=== PATIENT | male | born 1955 | race Caucasian/White ===

== ENCOUNTER 2017-02-18 03:04 | Inpatient (IN) | payer MEDICARE ==
[2017-02-18] MEDS: LORAZEPAM 2 MG INJ IV (04:53)
[2017-02-18 05:52] LABS: ADD MAN DIFF? NO
[2017-02-18 05:57] LABS: ABNORMAL IP MESSAGE 1; BASOPHILS % 0.2 % (0.0-2.0); EOSINOPHILS # 0.1 10^3/ul (0.0-0.5); EOSINOPHILS % 0.9 % (0.0-7.0); HEMATOCRIT 21.3 % (42.0-52.0); LYMPHOCYTES # 1.5 10^3/ul (0.8-2.9); LYMPHOCYTES % 11.8 % (15.0-51.0); MEAN CORPUSCULAR HEMOGLOBIN 28.1 pg (29.0-33.0); MEAN CORPUSCULAR HGB CONC 32.9 g/dl (32.0-37.0); MEAN CORPUSCULAR VOLUME 85.5 fl (82.0-101.0); MEAN PLATELET VOLUME 11.1 fl (7.4-10.4); MONOCYTE # 1.1 10^3/ul (0.3-0.9); MONOCYTES % 8.7 % (0.0-11.0); NEUTROPHIL # 9.8 10^3/ul (1.6-7.5); NEUTROPHILS % 77.6 % (39.0-77.0); PLATELET COUNT 292 10^3/UL (140-415); POSITIVE DIFF @See below; RED BLOOD COUNT 2.49 10^6/ul (4.70-6.10); RED CELL DISTRIBUTION WIDTH 24.6 % (11.5-14.5)
[2017-02-18 05:57] LABS: WHITE BLOOD COUNT 12.7 10^3/ul (4.8-10.8)
[2017-02-18 06:24] LABS: ALANINE AMINOTRANSFERASE 168 IU/L (13-69); ALBUMIN 2.2 g/dl (3.3-4.9); ALBUMIN/GLOBULIN RATIO 0.57; ALKALINE PHOSPHATASE 229 IU/L (42-121); ANION GAP 23 (8-16); ASPARTATE AMINO TRANSFERASE 284 IU/L (15-46); BILIRUBIN,TOTAL 7.8 mg/dl (0.2-1.3); BLOOD UREA NITROGEN 105 mg/dl (7-20); CALCIUM 8.8 mg/dl (8.4-10.2); CARBON DIOXIDE 16 mmol/L (21-31); CHLORIDE 103 mmol/L (97-110); CREATININE 3.69 mg/dl (0.61-1.24); GLUCOSE 92 mg/dl (70-220); LIPASE 1009 U/L (23-300); SODIUM 136 mmol/L (135-144)
[2017-02-18 06:28] LABS: AMMONIA 99 umol/l (9-30)
[2017-02-18] MEDS ORDERED: NACL 0.9% 3 ML SYG IV ×2 (06:30→09:00)
[2017-02-18] MEDS ORDERED: ONDANSETRON 4 MG TAB PO (06:30)
[2017-02-18 06:37] LABS: INR 2.07; PROTIME 23.8 Sec (11.9-14.9); PT RATIO 1.9
[2017-02-18] MEDS: LORAZEPAM 2 MG INJ IM (17:43)
[2017-02-19] MEDS: morphine 2 MG INJ IV ×2 (10:54→16:47)
[2017-02-19] MEDS: LORAZEPAM 2 MG INJ IM ×2 (11:31→17:52)
[2017-02-19] MEDS: PHYTONADIONE 10 MG in DEXTROSE 5% 50 ML IVPB (11:52)
[2017-02-19] MEDS: morphine 2 MG INJ IM (12:36)
[2017-02-19] MEDS: PHYTONADIONE 10 MG/ML INJ IM (13:27)
== END 2017-02-20 08:00 | disposition expired | DRG 919 ==
LOC: E/R 03:04 → PP2 04:56
DX: T85.621A Displacement of intraperitoneal dialysis catheter, initial encounter (principal); K72.01 Acute and subacute hepatic failure with coma; C22.0 Liver cell carcinoma; N17.9 Acute kidney failure, unspecified; R18.8 Other ascites; D63.0 Anemia in neoplastic disease; I46.9 Cardiac arrest, cause unspecified; N18.9 Chronic kidney disease, unspecified; K74.60 Unspecified cirrhosis of liver; R79.1 Abnormal coagulation profile; Z66 Do not resuscitate; Z51.5 Encounter for palliative care; Y84.8 Other medical procedures as the cause of abnormal reaction of the patient, or of later complication, without mention of misadventure at the time of the procedure
CPT/HCPCS: 71010; 80053; 82140; 83690; 85025; 85610; 96374; 99285-25